=== PATIENT | male | born 1970 | race Caucasian/White ===

== ENCOUNTER 2018-07-09 11:58 | Emergency (ER) | payer MEDICAID ==
[~2018-07-09] VITALS: Ht 167.6 cm; Wt 100.9 kg
[~2018-07-09 11:58] MED LIST: COL100 PO; FLEXERIL10 MG PO; KLOR-CON M2020 MEQ PO; LASIX20 MG PO; LISINOPRIL20 MG PO; NORCO1 TA2 PO; PRI20 PO; REG5 PO
[2018-07-09 12:03] VITALS: Ht 167.6 cm; Wt 100.9 kg
[2018-07-09 13:38] VITALS: BP 179/96
== END 2018-07-09 13:38 | disposition home or self-care (01) ==
LOC: ED 11:58
DX: J20.9 Acute bronchitis, unspecified (principal); I10 Essential (primary) hypertension
CPT/HCPCS: J7512

== ENCOUNTER 2018-07-11 00:38 | Emergency (ER) | payer MEDICAID ==
[2018-07-11 00:44] VITALS: Ht 167.6 cm
[2018-07-11 01:21] LABS: ALBUMIN 3.4 g/dL (3.4-5.0); ALKALINE PHOSPHATASE 85 U/L (46-116); ALT/SGPT 295 U/L (16-63); AST/SGOT 148 U/L (15-37); BILIRUBIN TOTAL 0.51 mg/dL (0.20-1.00); CALCIUM 8.2 mg/dL (8.5-10.1); CARBON DIOXIDE 28.1 mmol/L (21-32); CHLORIDE SERUM 104 mmol/L (98-107); GFR1 > 60 mL/min; GLUCOSE SERUM 117 mg/dL (74-106); SODIUM SERUM 143 mmol/L (136-145); TOTAL PROTEIN, SERUM 7.4 g/dL (6.4-8.2)
[2018-07-11 01:23] LABS: PLATELET COUNT 223 x10^3mcL (130-400); RED CELL DISTRIBUTION WIDTH 13.7 % (11.5-14.5)
[2018-07-11 01:25] LABS: POTASSIUM SERUM 2.8 mmol/L (3.5-5.1)
[2018-07-11 01:26] LABS: BASOPHIL % 2.9 % (0-2)
[2018-07-11 03:23] VITALS: BP 152/79
== END 2018-07-11 03:24 | disposition home or self-care (01) ==
LOC: ED 00:38
PROVIDERS: Emergency Medicine
DX: J98.01 Acute bronchospasm (principal); E87.6 Hypokalemia; I10 Essential (primary) hypertension; Z87.442 Personal history of urinary calculi
CPT/HCPCS: 87804; J1885; J7030; J7613; J7644

== ENCOUNTER 2018-08-10 04:29 | Emergency (ER) | payer MEDICAID ==
[~2018-08-10] VITALS: Ht 167.6 cm; Wt 104.6 kg
[2018-08-10 05:36] LABS: CALCIUM 8.5 mg/dL (8.5-10.1); CARBON DIOXIDE 31.4 mmol/L (21-32); CREATININE SERUM 1.7 mg/dL (0.7-1.3); POTASSIUM SERUM 3.2 mmol/L (3.5-5.1)
[2018-08-10 06:40] LABS: BASOPHIL % 0.1 % (0-2); PLATELET COUNT 175 x10^3mcL (130-400); RED CELL DISTRIBUTION WIDTH 13.5 % (11.5-14.5)
[2018-08-10 06:42] LABS: AMYLASE 49 U/L (25-115); LIPASE 208 IU/L (73-393)
[2018-08-10 07:41] LABS: UA SPECIFIC GRAVITY 1.015 (1.005-1.035); microscopic required? YES; urine erythrocyte TRACE (NEGATIVE)
[2018-08-10 08:56] VITALS: BP 161/69
== END 2018-08-10 08:56 | disposition home or self-care (01) ==
LOC: ED 04:29
PROVIDERS: Emergency Medicine
DX: N23 Unspecified renal colic (principal); N20.0 Calculus of kidney; N13.30 Unspecified hydronephrosis; I10 Essential (primary) hypertension; E66.01 Morbid (severe) obesity due to excess calories; Z87.442 Personal history of urinary calculi; Z98.890 Other specified postprocedural states
CPT/HCPCS: J1885; J2270; J2405; J7030

== ENCOUNTER 2018-08-22 12:28 | Emergency (ER) | payer MEDICAID ==
[~2018-08-22] VITALS: Ht 167.6 cm; Wt 99.8 kg
[2018-08-22 12:49] VITALS: BP 159/118; Ht 167.6 cm; Wt 99.8 kg
== END 2018-08-22 14:21 | disposition home or self-care (01) ==
LOC: ED 12:28
DX: S93.401A Sprain of unspecified ligament of right ankle, initial encounter (principal); S93.601A Unspecified sprain of right foot, initial encounter; I10 Essential (primary) hypertension; Z90.49 Acquired absence of other specified parts of digestive tract; Z87.442 Personal history of urinary calculi; V87.8XXA Person injured in other specified noncollision transport accidents involving motor vehicle (traffic), initial encounter; Y93.55 Activity, bike riding; Y92.488 Other paved roadways as the place of occurrence of the external cause; Y99.8 Other external cause status
CPT/HCPCS: Q0092

== ENCOUNTER 2018-09-11 03:52 | Emergency (ER) | payer MEDICAID ==
[~2018-09-11] VITALS: Ht 167.6 cm; Wt 93.9 kg
[2018-09-11 03:58] VITALS: Ht 167.6 cm; Wt 93.9 kg
[2018-09-11 06:39] VITALS: BP 158/110
== END 2018-09-11 06:39 | disposition home or self-care (01) ==
LOC: ED 03:52
DX: S51.811A Laceration without foreign body of right forearm, initial encounter (principal); Z87.442 Personal history of urinary calculi; Z90.49 Acquired absence of other specified parts of digestive tract; I10 Essential (primary) hypertension; W22.8XXA Striking against or struck by other objects, initial encounter; Y93.89 Activity, other specified; Y92.89 Other specified places as the place of occurrence of the external cause; Y99.8 Other external cause status
CPT/HCPCS: A4570